=== PATIENT | female | born 1955 | race Caucasian/White ===

== ENCOUNTER 2021-03-31 10:22 | Day surgery (SDC) | payer MEDICAID ==
[~2021-03-31] VITALS: Ht 160 cm; Wt 78.7 kg
[2021-03-31] VITALS (11 sets, daily range): BP systolic 121–180; BP diastolic 65–84
[2021-03-31] MEDS ORDERED: LORazepam 0.5 MG tablet PO PRN (10:50)
[2021-03-31] MEDS ORDERED: nitroGLYCERIN 0.4mg SUBLingual tab SL PRN (10:50)
[2021-03-31] MEDS ORDERED: normal saline 1,000 ML IV SCH (10:50)
[2021-03-31] MEDS ORDERED: diphenhydrAMINE 25mg capsule PO PRN (10:50)
[2021-03-31] MEDS ORDERED: SERT-434 PO (11:19)
[2021-03-31] MEDS ORDERED: IBUP-1985 PO (11:19)
[2021-03-31] MEDS ORDERED: FURO40TA4 PO (11:19)
[2021-03-31] MEDS ORDERED: CARV6.253 PO (11:19)
[2021-03-31] MEDS ORDERED: LOSA50TA64 PO (11:19)
[2021-03-31] MEDS ORDERED: SIMV-42 PO (11:20)
[2021-03-31] MEDS ORDERED: ASPI-845 PO (11:20)
[2021-03-31] MEDS ORDERED: midazolam 1 mg/ML 2ml injection ONE ×2 (12:11→12:43)
[2021-03-31] MEDS ORDERED: fentaNYL/PF 50MCG/1 ML 2ML syringe ONE ×2 (12:11→12:44)
[2021-03-31] MEDS ORDERED: iohexol 350 MG/ML 50ML vial IV ONE (12:12)
[2021-03-31] MEDS ORDERED: LIDOcaine 1% (10mg/ml)w/preservative injection 20ml MDV ONE (12:12)
[2021-03-31] MEDS ORDERED: iohexol 350MG/ML 100ml bottle IV ONE (12:12)
[2021-03-31] MEDS ORDERED: hydrALAZINE 20mg/ml inj. IV ONE (12:51)
[2021-03-31] MEDS ORDERED: nitroGLYCERIN-Tridil 50MG/D5W 250 ML IV ONE (12:53)
[2021-03-31] MEDS ORDERED: HYDROcodone/acetaminophen 10/325mg tab PO PRN (13:50)
[2021-03-31] MEDS ORDERED: proCHLORperazine 10 MG/2 ml inj IV PRN (13:50)
[2021-03-31] MEDS ORDERED: acetaminophen 325mg tablet PO PRN (13:50)
[2021-03-31] MEDS ORDERED: normal saline 1000ml 1,000 ML IV SCH (13:50)
[2021-03-31] MEDS ORDERED: ondansetron/PF 4mg/2ml inj IV PRN (13:50)
[2021-03-31] MEDS ORDERED: OXAZEpam 15mg capsule PO PRN (13:50)
[2021-03-31] MEDS ORDERED: HYDROcodone/acetaminophen 5mg/325mg tablet PO PRN (13:50)
[2021-03-31] MEDS ORDERED: HYDROmorphone inj. 0.5 MG/0.5 ML DISP.SYRIN IV PRN (13:55)
== END 2021-03-31 19:55 | disposition home or self-care (01) ==
LOC: SSTAY O 10:22
PROVIDERS: ATTEND Internal Medicine Cardiovascular Disease
DX: R94.39 Abnormal result of other cardiovascular function study (principal); I25.10 Atherosclerotic heart disease of native coronary artery without angina pectoris; I35.1 Nonrheumatic aortic (valve) insufficiency; I42.9 Cardiomyopathy, unspecified; I70.201 Unspecified atherosclerosis of native arteries of extremities, right leg; E78.5 Hyperlipidemia, unspecified; J44.9 Chronic obstructive pulmonary disease, unspecified; I11.0 Hypertensive heart disease with heart failure; I50.9 Heart failure, unspecified; F17.210 Nicotine dependence, cigarettes, uncomplicated; Z79.899 Other long term (current) drug therapy; Z90.710 Acquired absence of both cervix and uterus; Z79.82 Long term (current) use of aspirin; Z95.820 Peripheral vascular angioplasty status with implants and grafts; Z98.890 Other specified postprocedural states
CPT/HCPCS: 93458; 93567; 99152; 99153; C1760; C1769; J0360; J1170; J1644; J2001; J2250; J3010; J7030; Q0163; Q9967; A4620; A6258; J3490